=== PATIENT | male | born 1965 | race Caucasian/White ===

== ENCOUNTER → 2021-04-25 | Outpatient (CLI) | payer BC, OTHER ==
[~2021-04-25] MED LIST: AMOCLA875 PO; CETI10 PO; DIVA500ER PO; DOXA1 PO; IBUP200 PO; LEVSOD25 PO; LITH300C PO; Lithium Carbon300 M1 PO; OXYC5 PO; OXYM.05NI; ROLAIDS; ROSU10TA PO; VENL150ER PO; Ventolin/Prove6.7 GM INH
== END | disposition home or self-care (01) ==
LOC: LAB SHORT 08:11
DX: L82.1 Other seborrheic keratosis (principal)
CPT/HCPCS: 88305

== ENCOUNTER → 2023-09-07 | Outpatient (CLI) | payer OTHER ==
[2023-09-07 18:41] LABS: Prostate Specific Antigen 0.714 ng/mL (0.000-4.000)
[2023-09-07 18:43] LABS: PSA, %Free 33.3 %; PSA, Free 0.238 ng/mL
== END | disposition home or self-care (01) ==
LOC: LAB 10:00 → LAB SHORT 10:00
PROVIDERS: Nurse Practitioner Family
DX: N39.43 Post-void dribbling (principal)
CPT/HCPCS: 84153; 84154